=== PATIENT | female | born 1985 | race Asian ===

== ENCOUNTER 2020-02-13 15:05 | Outpatient (CLI) | payer BC | END 2020-02-13 23:59 | disposition home or self-care (01) | LOC: LAB.R 15:05 | PROVIDERS: ATTEND Physician Assistant Medical | DX: M79.10 Myalgia, unspecified site (principal); R53.83 Other fatigue; Z20.828 Contact with and (suspected) exposure to other viral communicable diseases | CPT/HCPCS: 82274; 87086; 87275; 87276 ==

== ENCOUNTER 2020-02-21 11:17 | Outpatient (CLI) | payer BC | END 2020-02-21 11:18 | disposition home or self-care (01) | LOC: LAB 11:17 | PROVIDERS: ATTEND Obstetrics & Gynecology | DX: Z34.90 Encounter for supervision of normal pregnancy, unspecified, unspecified trimester (principal) | CPT/HCPCS: 36415; 81599; 82105 ==